=== PATIENT | male | born 1970 | race Caucasian/White ===

== ENCOUNTER 2018-04-25 12:49 | Emergency (ER) | payer OTHER ==
[~2018-04-25] VITALS: Ht 172.7 cm; Wt 70.3 kg
[2018-04-25 12:52] VITALS: BP 160/80
== END 2018-04-25 13:20 | disposition home or self-care (01) ==
LOC: ED 13:14
DX: K02.9 Dental caries, unspecified (principal); F17.210 Nicotine dependence, cigarettes, uncomplicated
CPT/HCPCS: 99283